=== PATIENT | female | born 1945 | race Caucasian/White ===

== ENCOUNTER 2021-12-24 14:12 | Inpatient (IN) | payer OTHER ==
[2021-12-24] MEDS ORDERED: ACETAMINOPHEN 1000 MG/100 ML BAG IVPB ONE (14:58)
[2021-12-24] MEDS ORDERED: SODIUM CHLORIDE 0.9% 500 ML INFUS.BAG IV ONE ×2 (14:58→17:09)
[2021-12-24] MEDS ORDERED: ACETAMINOPHEN INJECTION 100 ML IVPB ONE (15:36)
[2021-12-24 16:23] LABS: INR 1.16 (0.83-1.09); PROTHROMBIN TIME (PATIENT) 13.4 SEC (9.7-13.0)
[2021-12-24 16:25] LABS: ACTIVATED PTT 30.2 SECONDS (25.2-36.5)
[2021-12-24 16:26] LABS: WHITE BLOOD COUNT 4.5 10^3/uL (4.0-10.8)
[2021-12-24 16:27] LABS: MEAN CELL VOLUME 87.7 fl (80-96)
[2021-12-24 16:28] LABS: ALBUMIN 3.7 g/dl (3.4-5.0); BASO % 0.2 % (0-2.0); BILIRUBIN,TOTAL 0.4 mg/dl (0.2-1); CALCIUM 9.4 mg/dl (8.5-10); EOS % 4.6 % (0-4.5); LYMPH % 29.7 % (8-40); MCH 29.5 pg (25.7-33.7); MCHC 33.6 g/dl (32.0-36.0); MEAN PLT VOLUME 7.7 fl (7.5-11.1); MONO % 4.2 % (3.8-10.2); NEUT % 61.3 % (42.8-82.8); PLATELET COUNT 86.2 10^3/uL (134-434); RDW 15.1 % (11.6-15.6); TOT PROT 7.4 g/dl (6.4-8.2)
[2021-12-24 16:33] LABS: HEMOGLOBIN 21.5 G/dL (10.7-15.3)
[2021-12-24] MEDS ORDERED: CEFTRIAXONE 1 GM in DEXTROSE 5%-WATER - 100 ML IVPB ONE (17:09)
[2021-12-24] MEDS ORDERED: cefTRIAXone SODIUM 1 GM VIAL ONE (17:14)
[2021-12-24 17:30] LABS: EPITHELIAL CELLS FEW /hpf
[2021-12-24] MEDS ORDERED: ALPRAZolam 0.25 MG TABLET PO PRN (18:25)
[2021-12-24] MEDS ORDERED: ENOXAPARIN NA (PORCINE) 40 MG/0.4 ML DISP.SYRIN SQ SCH (18:30)
[2021-12-24] MEDS ORDERED: LACTATED RINGERS SOLUTION 1,000 ML/1,000 ML INFUS.BAG IV SCH (18:30)
[2021-12-24 18:56] VITALS: BMI 27.6
[2021-12-24] MEDS: PANTOPRAZOLE 40 MG TABLET PO SCH (20:04)
[2021-12-24] MEDS: HEPARIN NA (PORCINE) 5,000 UNITS/ML 1ML VIAL SQ SCH (22:00)
[2021-12-24] MEDS: MELATONIN 5 MG TABLETS PO PRN (22:03)
[2021-12-25] MEDS: HEPARIN NA (PORCINE) 5,000 UNITS/ML 1ML VIAL SQ SCH ×3 (06:32→22:04)
[2021-12-25] MEDS: ACETAMINOPHEN 325 MG TABLET (FP) PO PRN ×2 (06:59→20:19)
[2021-12-25 09:07] LABS: ALBUMIN 3.2 g/dl (3.4-5.0); BILIRUBIN,TOTAL 0.5 mg/dl (0.2-1); CALCIUM 8.9 mg/dl (8.5-10); CREATININE 0.7 mg/dl (0.55-1.3); TOT PROT 6.6 g/dl (6.4-8.2)
[2021-12-25 09:30] LABS: HEMOGLOBIN 11.6 G/dL (10.7-15.3); MEAN CELL VOLUME 87.7 fl (80-96); MEAN PLT VOLUME 7.5 fl (7.5-11.1); PLATELET COUNT 297.9 10^3/uL (134-434); RBC 3.99 10^6/uL (3.60-5.2); RDW 14.4 % (11.6-15.6); WHITE BLOOD COUNT 6.6 10^3/uL (4.0-10.8)
[2021-12-25 09:32] LABS: BASO % 0.3 % (0-2.0); EOS % 5.5 % (0-4.5); LYMPH % 24.6 % (8-40); MONO % 12.6 % (3.8-10.2)
[2021-12-25] MEDS: PANTOPRAZOLE 40 MG TABLET PO SCH (10:17)
[2021-12-25] MEDS: amLODIPine BESYLATE 5 MG TABLET (FP) PO SCH (10:18)
[2021-12-25] MEDS: LACTATED RINGERS SOLUTION 1,000 ML/1,000 ML INFUS.BAG IV SCH (11:26)
[2021-12-25] MEDS ORDERED: DEXTROSE 5%-WATER 100 ML IVPB ONE (14:56)
[2021-12-25] MEDS: CEFTRIAXONE 2 GM in DEXTROSE 5%-WATER 100 ML IVPB SCH (15:15)
[2021-12-25] MEDS: MELATONIN 5 MG TABLETS PO PRN (22:09)
[2021-12-26] MEDS: HEPARIN NA (PORCINE) 5,000 UNITS/ML 1ML VIAL SQ SCH ×2 (06:31→14:29)
[2021-12-26 06:41] VITALS: BP 158/69; PULSE 83; TEMP 98.2
[2021-12-26 08:00] LABS: CALCIUM 9.3 mg/dl (8.5-10); CREATININE 0.7 mg/dl (0.55-1.3)
[2021-12-26] MEDS: ACETAMINOPHEN 325 MG TABLET (FP) PO PRN (08:00)
[2021-12-26 08:24] LABS: HEMATOCRIT 35.7 % (32.4-45.2); HEMOGLOBIN 12.1 G/dL (10.7-15.3); MCH 29.5 pg (25.7-33.7); MCHC 33.8 g/dl (32.0-36.0); PLATELET COUNT 315.2 10^3/uL (134-434); RDW 14.4 % (11.6-15.6); WHITE BLOOD COUNT 5.5 10^3/uL (4.0-10.8)
[2021-12-26] MEDS ORDERED: CEFUROXIME AXETIL 250 MG TABLET PO SCH ×2 (10:00)
[2021-12-26] MEDS ORDERED: DEXTROSE 5%-WATER 100 ML IVPB ONE ×2 (10:02→10:16)
[2021-12-26] MEDS: CEFTRIAXONE 2 GM in DEXTROSE 5%-WATER 100 ML IVPB SCH (10:13)
[2021-12-26] MEDS: amLODIPine BESYLATE 5 MG TABLET (FP) PO SCH (10:20)
[2021-12-26] MEDS: PANTOPRAZOLE 40 MG TABLET PO SCH (10:20)
[2021-12-26] MEDS: LACTATED RINGERS SOLUTION 1,000 ML/1,000 ML INFUS.BAG IV SCH (10:44)
[2021-12-26 17:17] LABS: ANISOCYTOSIS RARE
[2021-12-26 17:18] LABS: PLATELET ESTIMATE SLT INCREASE
[2021-12-27] MEDS ORDERED: CEFUROXIME AXETIL 250 MG TABLET PO SCH (10:00)
== END 2021-12-26 16:16 | disposition home or self-care (01) | DRG 690 ==
LOC: FER 14:12 → FM/S 17:46
PROVIDERS: ADMIT Internal Medicine; ATTEND Internal Medicine
DX: N39.0 Urinary tract infection, site not specified (principal); B96.4 Proteus (mirabilis) (morganii) as the cause of diseases classified elsewhere; I10 Essential (primary) hypertension; M54.30 Sciatica, unspecified side; F41.9 Anxiety disorder, unspecified; D69.6 Thrombocytopenia, unspecified; D75.1 Secondary polycythemia; N12 Tubulo-interstitial nephritis, not specified as acute or chronic; R09.02 Hypoxemia; E86.0 Dehydration; R94.31 Abnormal electrocardiogram [ECG] [EKG]; M79.10 Myalgia, unspecified site; Z90.710 Acquired absence of both cervix and uterus; Z90.49 Acquired absence of other specified parts of digestive tract
CPT/HCPCS: 36415; 71045-TC-FY; 72100-TC-FY; 72131-TC; 80048; 80053; 81003; 81015; 82607; 83036; 83735; 84484; 85025; 85610; 85730; 87040; 87086; 87186; 87804; 93005; 93306-TC; 97116-GP; 97161-GP; 99285-25; C9803-CS; J1644; U0003; U0005

== ENCOUNTER 2022-12-06 12:24 | Emergency (ER) | payer OTHER ==
[2022-12-06 12:43] VITALS: BP 179/90; PULSE 97; RESP 17; TEMP 97.9; BMI 25.4
[2022-12-06] MEDS ORDERED: LIDOCAINE 5% TOPICAL PATCH TP ONE (12:50)
[2022-12-06] MEDS ORDERED: KETOROLAC TROMETHAMINE 60 MG/2 ML VIAL IM ONE (12:50)
[2022-12-06] MEDS ORDERED: diazePAM 5 MG TABLET PO ONE (12:53)
[2022-12-06] MEDS ORDERED: LIDOCAINE 5% TOPICAL PATCH ONE (12:56)
[2022-12-06] MEDS ORDERED: KETOROLAC TROMETHAMINE 60 MG/2 ML VIAL ONE (12:56)
[2022-12-06] MEDS ORDERED: diazePAM 5 MG TABLET ONE (12:56)
[2022-12-06] MEDS ORDERED: CEPHALEXIN MONOHYDRATE 500 MG CAPSULE (UD) PO ONE (13:30)
[2022-12-06] MEDS ORDERED: GABAPENTIN 100 MG CAPSULE PO ONE (13:35)
[2022-12-06 13:55] LABS: EPITHELIAL CELLS RARE /hpf
[2022-12-06] MEDS ORDERED: CEPHALEXIN MONOHYDRATE 500 MG CAPSULE (UD) ONE (13:56)
[2022-12-06] MEDS ORDERED: LIDOCAINE PATCH REMOVAL MC SCH (22:00)
== END 2022-12-06 15:04 | disposition home or self-care (01) ==
LOC: FER 12:24
PROC: 3E0233Z Introduction of Anti-inflammatory into Muscle, Percutaneous Approach (ICD-10-PCS; principal; 2022-12-06)
DX: N39.0 Urinary tract infection, site not specified (principal); M54.50 Low back pain, unspecified
CPT/HCPCS: 81003; 81015; 87086; 87186; 99284-25

== ENCOUNTER 2022-12-13 13:12 | Inpatient (IN) | payer OTHER ==
[2022-12-13] MEDS ORDERED: LIDOCAINE 5% TOPICAL PATCH TP ONE (15:12)
[2022-12-13] MEDS ORDERED: diazePAM 2 MG TABLET PO ONE (15:12)
[2022-12-13] MEDS ORDERED: KETOROLAC TROMETHAMINE 30 MG/1 ML VIAL IM ONE (15:12)
[2022-12-13] MEDS ORDERED: KETOROLAC TROMETHAMINE 30 MG/1 ML VIAL ONE (15:24)
[2022-12-13] MEDS ORDERED: diazePAM 2 MG TABLET ONE (15:24)
[2022-12-13] MEDS ORDERED: LIDOCAINE 5% TOPICAL PATCH ONE (15:24)
[2022-12-13 15:56] LABS: BASO % 0.7 % (0-2.0); EOS % 0.9 % (0-4.5); HEMATOCRIT 38.3 % (32.4-45.2); LYMPH % 23.5 % (8-40); MCH 28.8 pg (25.7-33.7); MEAN CELL VOLUME 84.4 fl (80-96); MEAN PLT VOLUME 6.6 fl (7.5-11.1); MONO % 10.3 % (3.8-10.2); NEUT % 64.6 % (42.8-82.8); PLATELET COUNT 368 10^3/uL (134-434); RBC 4.54 M/mm3 (3.60-5.2); RDW 13.7 % (11.6-15.6); WHITE BLOOD COUNT 7.5 K/mm3 (4.0-10.0)
[2022-12-13 16:16] LABS: ALBUMIN 3.9 g/dl (3.4-5.0); BLOOD UREA NITROGEN 17.3 mg/dL (7-18); CALCIUM 9.8 mg/dL (8.5-10.1)
[2022-12-13 16:21] LABS: BILIRUBIN,TOTAL 0.2 mg/dL (0.2-1); TOT PROT 8.4 g/dl (6.4-8.2)
[2022-12-13] MEDS ORDERED: ACETAMINOPHEN 325 MG TABLET (FP) PO PRN (17:17)
[2022-12-13] MEDS ORDERED: KETOROLAC TROMETHAMINE 15 MG/ML VIAL IVPUSH PRN (17:18)
[2022-12-13] MEDS ORDERED: DEXAMETHASONE SOD PHOSPHATE 4 MG/1 ML VIAL ONE (18:26)
[2022-12-13] MEDS: DEXAMETHASONE SOD PHOSPHATE 4 MG/1 ML VIAL IVPUSH SCH (18:49)
[2022-12-13] MEDS ORDERED: LABETALOL HCL 100 MG TABLET (FP) PO ONE (18:53)
[2022-12-13 18:56] LABS: EPI CELLS >36 /uL (0-25.1); HYALINE CASTS 2 /uL (0-3.1); URINE APPEARANCE CLEAR; URINE BACTERIA 51 /uL (0-1359); URINE BILIRUBIN NEGATIVE (NEGATIVE); URINE COLOR YELLOW; URINE GLUCOSE (UA) NEGATIVE (NEGATIVE); URINE KETONE NEGATIVE (NEGATIVE); URINE LEUK ESTERASE 2+ (NEGATIVE); URINE NITRITE NEGATIVE (NEGATIVE); URINE PROTEIN NEGATIVE (NEGATIVE); URINE RBC 45 /uL (0-23.9); URINE UROBILINOGEN 0.2 mg/dL (0.2-1.0); URINE WBC 181 /uL (0-25.8)
[2022-12-13] MEDS: HYDROCHLOROTHIAZIDE 25 MG TABLET (FP) PO SCH (20:29)
[2022-12-13] MEDS ORDERED: LABETALOL HCL 100 MG TABLET (FP) ONE (20:32)
[2022-12-13] MEDS ORDERED: KETOROLAC TROMETHAMINE 15 MG/ML VIAL ONE (20:32)
[2022-12-13] MEDS ORDERED: HYDROCHLOROTHIAZIDE 25 MG TABLET (FP) ONE (20:32)
[2022-12-13] MEDS ORDERED: clonazePAM 0.5 MG TABLET PO SCH (22:00)
[2022-12-13] MEDS ORDERED: GABAPENTIN 100 MG CAPSULE PO SCH (22:00)
[2022-12-13] MEDS ORDERED: LIDOCAINE PATCH REMOVAL MC SCH (22:00)
[2022-12-14] MEDS ORDERED: GABAPENTIN 100 MG CAPSULE ONE ×2 (00:05→06:11)
[2022-12-14] MEDS ORDERED: clonazePAM 0.5 MG TABLET ONE (00:05)
[2022-12-14] MEDS: HEPARIN NA (PORCINE) 5,000 UNITS/ML 1ML VIAL SQ SCH ×2 (06:49→22:37)
[2022-12-14 07:31] LABS: BASO % 0.2 % (0-2.0); HEMATOCRIT 34.1 % (32.4-45.2); HEMOGLOBIN 11.6 GM/dL (10.7-15.3); LYMPH % 14.4 % (8-40); MCH 28.7 pg (25.7-33.7); MCHC 34.1 g/dl (32.0-36.0); MEAN CELL VOLUME 84.2 fl (80-96); MONO % 7.3 % (3.8-10.2); NEUT % 78.1 % (42.8-82.8); PLATELET COUNT 323 10^3/uL (134-434); RBC 4.05 M/mm3 (3.60-5.2); RDW 13.8 % (11.6-15.6); WHITE BLOOD COUNT 6.4 K/mm3 (4.0-10.0)
[2022-12-14 07:41] LABS: CALCIUM 9.3 mg/dL (8.5-10.1)
[2022-12-14 07:42] LABS: ALBUMIN 3.3 g/dl (3.4-5.0); BLOOD UREA NITROGEN 24.5 mg/dL (7-18); MAGNESIUM 2.4 mg/dL (1.8-2.4)
[2022-12-14 07:46] LABS: TOT PROT 7.2 g/dl (6.4-8.2)
[2022-12-14 07:47] LABS: BILIRUBIN,TOTAL 0.4 mg/dL (0.2-1)
[2022-12-14] MEDS ORDERED: DEXAMETHASONE SOD PHOSPHATE 4 MG/1 ML VIAL ONE (10:34)
[2022-12-14] MEDS ORDERED: HYDROCHLOROTHIAZIDE 25 MG TABLET (FP) ONE (10:34)
[2022-12-14] MEDS ORDERED: PANTOPRAZOLE 40 MG TABLET PO ONE (10:34)
[2022-12-14] MEDS: HYDROCHLOROTHIAZIDE 25 MG TABLET (FP) PO SCH (11:17)
[2022-12-14] MEDS: DEXAMETHASONE SOD PHOSPHATE 4 MG/1 ML VIAL IVPUSH SCH (11:18)
[2022-12-14] MEDS: PANTOPRAZOLE 40 MG TABLET PO SCH (11:18)
[2022-12-14] MEDS: GABAPENTIN 100 MG CAPSULE PO SCH (22:37)
[2022-12-14] MEDS: traMADol HCL 50 MG TABLET PO PRN (22:38)
[2022-12-14 22:59] VITALS: BMI 27.1
[2022-12-15] MEDS: GABAPENTIN 100 MG CAPSULE PO SCH ×3 (05:57→23:28)
[2022-12-15] MEDS: traMADol HCL 50 MG TABLET PO PRN (05:58)
[2022-12-15] MEDS: HEPARIN NA (PORCINE) 5,000 UNITS/ML 1ML VIAL SQ SCH ×2 (05:58→13:42)
[2022-12-15] MEDS: PANTOPRAZOLE 40 MG TABLET PO SCH (10:21)
[2022-12-15] MEDS: HYDROCHLOROTHIAZIDE 25 MG TABLET (FP) PO SCH (10:21)
[2022-12-15] MEDS ORDERED: amLODIPine BESYLATE 10 MG TABLET (FP) PO SCH (12:45)
[2022-12-15] MEDS ORDERED: VANCOMYCIN 1,000 MG VIAL (RESTRICTED TO ID ONLY) ONE ×2 (14:11→15:06)
[2022-12-15] MEDS ORDERED: GENTAMICIN SO4 80 MG/2 ML VIAL ONE (14:11)
[2022-12-15] MEDS ORDERED: THROMBIN (BOVINE) 5,000 UNIT VIAL TP ONE ×2 (14:12→16:11)
[2022-12-15] MEDS ORDERED: BUPIVACAINE LIPOSOME/PF (EXPAREL) 266 MG/20 ML VIAL ONE (14:12)
[2022-12-15] MEDS ORDERED: BUPIVACAINE HCL/PF 0.5% (5MG/ML) 10 ML VIAL ONE (14:12)
[2022-12-15] MEDS ORDERED: morphine SULFATE (PF) 1 MG/2 ML SYRINGE ONE (14:54)
[2022-12-15] MEDS ORDERED: ceFAZolin SODIUM 1 GM VIAL ONE (15:06)
[2022-12-15] MEDS ORDERED: MIDAZOLAM HCL 2 MG/2 ML SINGLE DOSE VIAL ONE (15:06)
[2022-12-15] MEDS ORDERED: TRANEXAMIC ACID 1000 MG/10 ML VIAL ONE (15:06)
[2022-12-15] MEDS ORDERED: ceFAZolin SODIUM 1 GM VIAL IVPB ONE (15:32)
[2022-12-15] MEDS ORDERED: VANCOMYCIN 1,000 MG VIAL (RESTRICTED TO ID ONLY) IVPB ONE (15:32)
[2022-12-15] MEDS ORDERED: ROCURONIUM BROMIDE 50 MG/5 ML SYRINGE ONE (15:40)
[2022-12-15] MEDS ORDERED: GLYCOPYRROLATE 0.2 MG/1 ML VIAL ONE ×2 (15:45→19:15)
[2022-12-15] MEDS ORDERED: LIDOCAINE 1%/EPI 1:100000 (50 ML MULTI DOSE VIAL) INF ONE (15:46)
[2022-12-15] MEDS ORDERED: GENTAMICIN SO4 80 MG/2 ML VIAL IVPB ONE (16:11)
[2022-12-15] MEDS ORDERED: BUPIVACAINE LIPOSOME/PF (EXPAREL) 266 MG/20 ML VIAL NR ONE ×2 (16:35→18:35)
[2022-12-15] MEDS ORDERED: BUPIVACAINE HCL/PF 0.5% (5 MG/ML) 30 ML VIAL IJ ONE ×2 (16:37→18:35)
[2022-12-15] MEDS ORDERED: ONDANSETRON 4 MG/2 ML VIAL ONE (18:57)
[2022-12-15] MEDS ORDERED: NEOSTIGMINE METHYLSULFATE 0.5 MG/1 ML - 10 ML MDV ONE (19:15)
[2022-12-15] MEDS ORDERED: ONDANSETRON 4 MG/2 ML VIAL IVPUSH PRN ×2 (20:04→20:36)
[2022-12-15] MEDS ORDERED: LACTATED RINGERS SOLUTION 1,000 ML IV SCH (20:15)
[2022-12-15] MEDS ORDERED: diphenhydrAMINE HCL 25 MG CAPSULE (FP) PO PRN (20:36)
[2022-12-15] MEDS: LACTATED RINGERS SOLUTION 1,000 ML IV SCH (21:02)
[2022-12-15] MEDS: DOCUSATE SODIUM 100 MG CAPSULE (FP) PO SCH (23:28)
[2022-12-15] MEDS ORDERED: CEFAZOLIN 1 GM in DEXTROSE 5%-WATER - 50 ML IVPB SCH (23:30)
[2022-12-16] MEDS: ACETAMINOPHEN 1000 MG/100 ML BAG IVPB SCH ×4 (00:05→19:57)
[2022-12-16] MEDS: GABAPENTIN 100 MG CAPSULE PO SCH (05:19)
[2022-12-16] MEDS: DOCUSATE SODIUM 100 MG CAPSULE (FP) PO SCH ×3 (05:19→21:14)
[2022-12-16 07:26] LABS: HEMATOCRIT 30.4 % (32.4-45.2); HEMOGLOBIN 10.4 GM/dL (10.7-15.3); MCH 28.8 pg (25.7-33.7); MCHC 34.3 g/dl (32.0-36.0); MEAN PLT VOLUME 7.1 fl (7.5-11.1); PLATELET COUNT 306 10^3/uL (134-434); RBC 3.62 M/mm3 (3.60-5.2); RDW 13.8 % (11.6-15.6); WHITE BLOOD COUNT 12.9 K/mm3 (4.0-10.0)
[2022-12-16 08:00] LABS: CALCIUM 8.5 mg/dL (8.5-10.1)
[2022-12-16 08:01] LABS: BLOOD UREA NITROGEN 21.5 mg/dL (7-18)
[2022-12-16 08:03] LABS: CREATININE 0.8 mg/dL (0.55-1.3)
[2022-12-16] MEDS: CEFAZOLIN 1 GM in DEXTROSE 5%-WATER - 50 ML IVPB SCH ×2 (10:00→17:32)
[2022-12-16] MEDS: amLODIPine BESYLATE 10 MG TABLET (FP) PO SCH (10:01)
[2022-12-16] MEDS: PANTOPRAZOLE 40 MG TABLET PO SCH (10:01)
[2022-12-16] MEDS: HYDROCHLOROTHIAZIDE 12.5 MG CAPSULE (FP) PO SCH (10:01)
[2022-12-16] MEDS: GABAPENTIN 300 MG CAPSULE PO SCH ×2 (14:13→21:15)
[2022-12-16] MEDS: HEPARIN NA (PORCINE) 5,000 UNITS/ML 1ML VIAL SQ SCH ×2 (14:13→21:15)
[2022-12-16] MEDS: LACTATED RINGERS SOLUTION 1,000 ML IV SCH (21:14)
[2022-12-17] MEDS: ACETAMINOPHEN 1000 MG/100 ML BAG IVPB SCH ×2 (01:25→06:06)
[2022-12-17] MEDS: CEFAZOLIN 1 GM in DEXTROSE 5%-WATER - 50 ML IVPB SCH ×3 (01:45→17:19)
[2022-12-17] MEDS: HEPARIN NA (PORCINE) 5,000 UNITS/ML 1ML VIAL SQ SCH ×3 (05:57→21:39)
[2022-12-17] MEDS: DOCUSATE SODIUM 100 MG CAPSULE (FP) PO SCH ×3 (05:57→21:39)
[2022-12-17] MEDS: GABAPENTIN 300 MG CAPSULE PO SCH ×3 (05:58→21:39)
[2022-12-17 08:33] LABS: BASO % 0.3 % (0-2.0); EOS % 0.9 % (0-4.5); HEMATOCRIT 30.7 % (32.4-45.2); HEMOGLOBIN 10.6 GM/dL (10.7-15.3); LYMPH % 25.1 % (8-40); MCH 29.1 pg (25.7-33.7); MCHC 34.4 g/dl (32.0-36.0); MEAN CELL VOLUME 84.8 fl (80-96); MEAN PLT VOLUME 7.1 fl (7.5-11.1); MONO % 13.9 % (3.8-10.2); NEUT % 59.8 % (42.8-82.8); PLATELET COUNT 274 10^3/uL (134-434); RBC 3.62 M/mm3 (3.60-5.2); RDW 13.8 % (11.6-15.6); WHITE BLOOD COUNT 8.7 K/mm3 (4.0-10.0)
[2022-12-17 09:02] LABS: BLOOD UREA NITROGEN 13.7 mg/dL (7-18); CALCIUM 8.2 mg/dL (8.5-10.1)
[2022-12-17 09:06] LABS: CREATININE 0.8 mg/dL (0.55-1.3)
[2022-12-17] MEDS: amLODIPine BESYLATE 10 MG TABLET (FP) PO SCH (09:34)
[2022-12-17] MEDS: PANTOPRAZOLE 40 MG TABLET PO SCH (09:34)
[2022-12-17] MEDS: HYDROCHLOROTHIAZIDE 12.5 MG CAPSULE (FP) PO SCH (09:34)
[2022-12-17] MEDS: LACTATED RINGERS SOLUTION 1,000 ML IV SCH (20:50)
[2022-12-18] MEDS: LACTATED RINGERS SOLUTION 1,000 ML IV SCH ×3 (00:26→22:32)
[2022-12-18] MEDS: CEFAZOLIN 1 GM in DEXTROSE 5%-WATER - 50 ML IVPB SCH ×3 (05:16→17:15)
[2022-12-18] MEDS: HEPARIN NA (PORCINE) 5,000 UNITS/ML 1ML VIAL SQ SCH ×3 (05:55→22:33)
[2022-12-18] MEDS: DOCUSATE SODIUM 100 MG CAPSULE (FP) PO SCH ×3 (05:55→22:33)
[2022-12-18] MEDS: GABAPENTIN 300 MG CAPSULE PO SCH ×3 (05:55→22:33)
[2022-12-18 08:22] LABS: HEMATOCRIT 30.7 % (32.4-45.2); HEMOGLOBIN 10.5 GM/dL (10.7-15.3); MCH 29.2 pg (25.7-33.7); MCHC 34.3 g/dl (32.0-36.0); MEAN PLT VOLUME 7.6 fl (7.5-11.1); PLATELET COUNT 279 10^3/uL (134-434); RBC 3.61 M/mm3 (3.60-5.2); RDW 13.8 % (11.6-15.6); WHITE BLOOD COUNT 12.1 K/mm3 (4.0-10.0)
[2022-12-18] MEDS ORDERED: ACETAMINOPHEN 325 MG TABLET (FP) PO PRN (08:30)
[2022-12-18 08:47] LABS: CALCIUM 8.8 mg/dL (8.5-10.1)
[2022-12-18 08:48] LABS: BLOOD UREA NITROGEN 9.4 mg/dL (7-18)
[2022-12-18 08:55] LABS: CREATININE 0.7 mg/dL (0.55-1.3)
[2022-12-18] MEDS: amLODIPine BESYLATE 10 MG TABLET (FP) PO SCH (09:49)
[2022-12-18] MEDS: PANTOPRAZOLE 40 MG TABLET PO SCH (09:49)
[2022-12-18] MEDS: HYDROCHLOROTHIAZIDE 12.5 MG CAPSULE (FP) PO SCH (09:49)
[2022-12-18] MEDS: traMADol HCL 50 MG TABLET PO PRN ×3 (09:53→22:38)
[2022-12-18] MEDS: POLYETHYLENE GLYCOL (HEALTHYLAX) 3350 17 GM PACKET PO SCH (22:33)
[2022-12-19] MEDS: CEFAZOLIN 1 GM in DEXTROSE 5%-WATER - 50 ML IVPB SCH ×3 (02:19→17:01)
[2022-12-19] MEDS: LACTATED RINGERS SOLUTION 1,000 ML IV SCH ×2 (06:20→18:48)
[2022-12-19] MEDS: HEPARIN NA (PORCINE) 5,000 UNITS/ML 1ML VIAL SQ SCH ×3 (06:21→21:10)
[2022-12-19] MEDS: DOCUSATE SODIUM 100 MG CAPSULE (FP) PO SCH ×3 (06:21→21:11)
[2022-12-19] MEDS: GABAPENTIN 300 MG CAPSULE PO SCH ×3 (06:21→21:11)
[2022-12-19 07:27] LABS: BASO % 0.7 % (0-2.0); EOS % 3.6 % (0-4.5); HEMATOCRIT 27.3 % (32.4-45.2); HEMOGLOBIN 9.6 GM/dL (10.7-15.3); LYMPH % 26.3 % (8-40); MCH 29.3 pg (25.7-33.7); MEAN CELL VOLUME 83.5 fl (80-96); MEAN PLT VOLUME 7.3 fl (7.5-11.1); NEUT % 56.4 % (42.8-82.8); PLATELET COUNT 292 10^3/uL (134-434); RBC 3.27 M/mm3 (3.60-5.2); RDW 13.4 % (11.6-15.6); WHITE BLOOD COUNT 7.9 K/mm3 (4.0-10.0)
[2022-12-19] MEDS: traMADol HCL 50 MG TABLET PO PRN ×2 (07:41→17:06)
[2022-12-19 07:43] LABS: CALCIUM 8.5 mg/dL (8.5-10.1)
[2022-12-19 07:44] LABS: BLOOD UREA NITROGEN 10.6 mg/dL (7-18)
[2022-12-19 07:47] LABS: CREATININE 0.7 mg/dL (0.55-1.3)
[2022-12-19] MEDS ORDERED: LACTATED RINGERS SOLUTION 1,000 ML IV SCH (08:30)
[2022-12-19] MEDS: PANTOPRAZOLE 40 MG TABLET PO SCH (09:10)
[2022-12-19] MEDS: amLODIPine BESYLATE 10 MG TABLET (FP) PO SCH (09:10)
[2022-12-19] MEDS: POLYETHYLENE GLYCOL (HEALTHYLAX) 3350 17 GM PACKET PO SCH ×2 (09:10→21:10)
[2022-12-19] MEDS: HYDROCHLOROTHIAZIDE 12.5 MG CAPSULE (FP) PO SCH (09:10)
[2022-12-19] MEDS ORDERED: IRON SUCROSE INJECTION 300 MG in SODIUM CHLORIDE 235 ML IVPB ONE (09:15)
[2022-12-19] MEDS: BACLOFEN 10 MG TABLET (FP) PO SCH ×2 (09:17→21:10)
[2022-12-19] MEDS: TAMSULOSIN HCL 0.4 MG CAP PO SCH (09:41)
[2022-12-19] MEDS: ACETAMINOPHEN 500 MG TABLET (FP) PO SCH ×2 (13:09→19:21)
[2022-12-19] MEDS: ONDANSETRON 4 MG/2 ML VIAL IVPUSH PRN (14:22)
[2022-12-20] MEDS: traMADol HCL 50 MG TABLET PO PRN ×2 (01:08→08:36)
[2022-12-20] MEDS: CEFAZOLIN 1 GM in DEXTROSE 5%-WATER - 50 ML IVPB SCH ×3 (01:13→17:49)
[2022-12-20] MEDS: ACETAMINOPHEN 500 MG TABLET (FP) PO PRN (03:20)
[2022-12-20] MEDS: HEPARIN NA (PORCINE) 5,000 UNITS/ML 1ML VIAL SQ SCH ×3 (07:02→21:13)
[2022-12-20] MEDS: DOCUSATE SODIUM 100 MG CAPSULE (FP) PO SCH ×3 (07:02→21:13)
[2022-12-20] MEDS: GABAPENTIN 300 MG CAPSULE PO SCH ×3 (07:02→21:14)
[2022-12-20 07:57] LABS: BASO % 0.6 % (0-2.0); EOS % 4.5 % (0-4.5); HEMATOCRIT 27.1 % (32.4-45.2); HEMOGLOBIN 9.3 GM/dL (10.7-15.3); LYMPH % 20.4 % (8-40); MCH 29.2 pg (25.7-33.7); MCHC 34.2 g/dl (32.0-36.0); MEAN CELL VOLUME 85.3 fl (80-96); MEAN PLT VOLUME 7.2 fl (7.5-11.1); MONO % 12.2 % (3.8-10.2); NEUT % 62.3 % (42.8-82.8); PLATELET COUNT 301 10^3/uL (134-434); RBC 3.18 M/mm3 (3.60-5.2); RDW 13.3 % (11.6-15.6); WHITE BLOOD COUNT 6.3 K/mm3 (4.0-10.0)
[2022-12-20] MEDS: TAMSULOSIN HCL 0.4 MG CAP PO SCH (08:37)
[2022-12-20 09:00] LABS: CALCIUM 8.6 mg/dL (8.5-10.1)
[2022-12-20 09:01] LABS: BLOOD UREA NITROGEN 8.4 mg/dL (7-18)
[2022-12-20 09:04] LABS: CREATININE 0.6 mg/dL (0.55-1.3)
[2022-12-20] MEDS: LACTATED RINGERS SOLUTION 1,000 ML IV SCH (09:16)
[2022-12-20] MEDS: BACLOFEN 10 MG TABLET (FP) PO SCH ×2 (09:16→21:13)
[2022-12-20] MEDS: POLYETHYLENE GLYCOL (HEALTHYLAX) 3350 17 GM PACKET PO SCH ×2 (09:17→21:13)
[2022-12-20] MEDS: amLODIPine BESYLATE 10 MG TABLET (FP) PO SCH (09:17)
[2022-12-20] MEDS: PANTOPRAZOLE 40 MG TABLET PO SCH (09:17)
[2022-12-20] MEDS ORDERED: MINERAL OIL ENEMA 133 ML ENEMA RC ONE (14:06)
[2022-12-20] MEDS: ONDANSETRON 4 MG/2 ML VIAL IVPUSH PRN (15:39)
[2022-12-20] MEDS ORDERED: diphenhydrAMINE HCL 25 MG CAPSULE (FP) PO PRN (17:22)
[2022-12-21] MEDS: CEFAZOLIN 1 GM in DEXTROSE 5%-WATER - 50 ML IVPB SCH ×3 (01:58→18:33)
[2022-12-21] MEDS: traMADol HCL 50 MG TABLET PO PRN ×3 (02:24→21:45)
[2022-12-21 02:37] LABS: PH,URINE 7.5 (5.0-8.0); URINE APPEARANCE CLEAR; URINE BILIRUBIN NEGATIVE (NEGATIVE); URINE COLOR YELLOW; URINE GLUCOSE (UA) NEGATIVE (NEGATIVE); URINE KETONE NEGATIVE (NEGATIVE); URINE LEUK ESTERASE NEGATIVE (NEGATIVE); URINE NITRITE NEGATIVE (NEGATIVE); URINE PROTEIN NEGATIVE (NEGATIVE); URINE UROBILINOGEN 0.2 mg/dL (0.2-1.0)
[2022-12-21] MEDS: HEPARIN NA (PORCINE) 5,000 UNITS/ML 1ML VIAL SQ SCH ×3 (05:07→21:46)
[2022-12-21] MEDS: GABAPENTIN 300 MG CAPSULE PO SCH ×3 (05:08→21:45)
[2022-12-21] MEDS: DOCUSATE SODIUM 100 MG CAPSULE (FP) PO SCH ×3 (05:08→21:45)
[2022-12-21 08:55] LABS: BASO % 0.4 % (0-2.0); EOS % 1.6 % (0-4.5); HEMATOCRIT 29.1 % (32.4-45.2); LYMPH % 17.4 % (8-40); MCHC 34.3 g/dl (32.0-36.0); MEAN CELL VOLUME 84.5 fl (80-96); MEAN PLT VOLUME 6.8 fl (7.5-11.1); MONO % 12.4 % (3.8-10.2); NEUT % 68.2 % (42.8-82.8); PLATELET COUNT 351 10^3/uL (134-434); RBC 3.44 M/mm3 (3.60-5.2); RDW 13.6 % (11.6-15.6); WHITE BLOOD COUNT 8.3 K/mm3 (4.0-10.0)
[2022-12-21 09:04] LABS: BLOOD UREA NITROGEN 9.3 mg/dL (7-18); CALCIUM 8.8 mg/dL (8.5-10.1)
[2022-12-21 09:08] LABS: CREATININE 0.7 mg/dL (0.55-1.3)
[2022-12-21 09:34] VITALS: RESP 18
[2022-12-21] MEDS: POLYETHYLENE GLYCOL (HEALTHYLAX) 3350 17 GM PACKET PO SCH ×2 (09:34→21:46)
[2022-12-21] MEDS: amLODIPine BESYLATE 10 MG TABLET (FP) PO SCH (09:35)
[2022-12-21] MEDS: TAMSULOSIN HCL 0.4 MG CAP PO SCH (09:35)
[2022-12-21] MEDS: PANTOPRAZOLE 40 MG TABLET PO SCH (09:35)
[2022-12-21] MEDS: BACLOFEN 10 MG TABLET (FP) PO SCH ×2 (09:36→21:45)
[2022-12-21] MEDS ORDERED: BENZOCAINE/MENTHOL 1 EACH LOZENGE MM PRN (13:22)
[2022-12-22] MEDS: CEFAZOLIN 1 GM in DEXTROSE 5%-WATER - 50 ML IVPB SCH ×3 (01:17→19:57)
[2022-12-22] MEDS: ACETAMINOPHEN 500 MG TABLET (FP) PO PRN (01:50)
[2022-12-22] MEDS: DOCUSATE SODIUM 100 MG CAPSULE (FP) PO SCH ×2 (05:23→14:17)
[2022-12-22] MEDS: HEPARIN NA (PORCINE) 5,000 UNITS/ML 1ML VIAL SQ SCH ×2 (05:23→14:17)
[2022-12-22] MEDS: GABAPENTIN 300 MG CAPSULE PO SCH ×2 (05:23→14:17)
[2022-12-22] MEDS: traMADol HCL 50 MG TABLET PO PRN ×2 (05:31→10:56)
[2022-12-22 10:56] VITALS: BP 134/67; PULSE 77; TEMP 98.2
[2022-12-22] MEDS: POLYETHYLENE GLYCOL (HEALTHYLAX) 3350 17 GM PACKET PO SCH (10:57)
[2022-12-22] MEDS: amLODIPine BESYLATE 10 MG TABLET (FP) PO SCH (10:58)
[2022-12-22] MEDS: PANTOPRAZOLE 40 MG TABLET PO SCH (10:58)
[2022-12-22] MEDS: BACLOFEN 10 MG TABLET (FP) PO SCH (10:58)
[2022-12-22] MEDS: TAMSULOSIN HCL 0.4 MG CAP PO SCH (10:59)
== END 2022-12-22 20:15 | DRG 454 ==
LOC: JER 13:12 → INTOOBSV 16:23 → JERBED 16:23 → J7W 12-14 20:34 → OBSVTOIN 12-15 14:36 → J4S 12-15 22:20 → J4W 12-17 15:30 → J7W 12-20 15:09
PROVIDERS: ADMIT Internal Medicine; ATTEND Internal Medicine
PROC: 0SG0071 Fusion of Lumbar Vertebral Joint with Autologous Tissue Substitute, Posterior Approach, Posterior Column, Open Approach (ICD-10-PCS; 2022-12-15)
PROC: 0QB00ZZ Excision of Lumbar Vertebra, Open Approach (ICD-10-PCS; 2022-12-15)
PROC: 01NB0ZZ Release Lumbar Nerve, Open Approach (ICD-10-PCS; 2022-12-15)
PROC: 00NY0ZZ Release Lumbar Spinal Cord, Open Approach (ICD-10-PCS; 2022-12-15)
PROC: 0SG30AJ Fusion of Lumbosacral Joint with Interbody Fusion Device, Posterior Approach, Anterior Column, Open Approach (ICD-10-PCS; 2022-12-15)
PROC: 0SG3071 Fusion of Lumbosacral Joint with Autologous Tissue Substitute, Posterior Approach, Posterior Column, Open Approach (ICD-10-PCS; 2022-12-15)
PROC: 00U20KZ Supplement Dura Mater with Nonautologous Tissue Substitute, Open Approach (ICD-10-PCS; 2022-12-15)
PROC: 01NR0ZZ Release Sacral Nerve, Open Approach (ICD-10-PCS; 2022-12-15)
PROC: 4A1004G Monitoring of Central Nervous Electrical Activity, Intraoperative, Open Approach (ICD-10-PCS; 2022-12-15)
PROC: 0SG00AJ Fusion of Lumbar Vertebral Joint with Interbody Fusion Device, Posterior Approach, Anterior Column, Open Approach (ICD-10-PCS; principal; 2022-12-15 16:00)
DX: M51.27 Other intervertebral disc displacement, lumbosacral region (principal); E87.1 Hypo-osmolality and hyponatremia; G97.41 Accidental puncture or laceration of dura during a procedure; M51.16 Intervertebral disc disorders with radiculopathy, lumbar region; M47.816 Spondylosis without myelopathy or radiculopathy, lumbar region; M48.07 Spinal stenosis, lumbosacral region; I10 Essential (primary) hypertension; K21.9 Gastro-esophageal reflux disease without esophagitis; Y83.9 Surgical procedure, unspecified as the cause of abnormal reaction of the patient, or of later complication, without mention of misadventure at the time of the procedure; D72.829 Elevated white blood cell count, unspecified; K59.00 Constipation, unspecified; R33.9 Retention of urine, unspecified; D50.9 Iron deficiency anemia, unspecified
CPT/HCPCS: 36415; 71046-TC-FY; 72131-TC; 72148-TC; 80048; 80053; 81003; 82728; 82962; 83540; 83550; 83735; 84100; 85025; 85027; 85610; 85730; 86850; 86900; 86901; 87086; 93005; 93010; 94010; 94760; 97116-GP; 97161-GP; 99285-25; C1713; C1889; C9803-CS; G0378; J0475; J1100; J1644; J1756; U0003; U0005